=== PATIENT | male | born 1955 | race Caucasian/White ===

== ENCOUNTER → 2017-04-29 | Outpatient (CLI) | payer OTHER ==
[~2017-04-29] MED LIST: REGADENOSON 0.4 MG/5 ML DISP.SYRIN. IV ONE
--- NOTE | 2017-04-29 16:16 | PCVCIMAG ---
APPROVED REPORT Exam: Nuclear Stress Test Indication: CAD Patient Location: Out patient Stress Nurse: Karen Rivers RN, Irina Segovia RN [place] Tech:Jimmy PabloMARLENTCB Ht: 5 ft 10 in Wt: 210 lbs BSA: 2.13 m2 HR: 77 bpm BP: 137/84 mmHg BMI: 30.1 Rhythm: SR Medical History Medical History: Age, Hyperlipidemia, HTN, CVD, [place], Allergies: Sulfa, Eber Inhibitor Previous Cardiac Procedures: PCI 2015 NM EXAM: Myocardial Perfusion REST/STRESS Imaging Protocol: Rest Tc-99m/Stress Tc-99m 1 day Resting Data Rest SPECT myocardial perfusion imaging was performed in supine position 45 minutes following the intravenous injection of 11.7 mCi of Tc-99m Sestamibi. Time of rest injection: 09 Date: 04/29/2017 Pharmacologic Stress Pharmacologic stress test was performed by injecting Regadenoson 0.4 mg IV push followed by the intravenous injection of 34.2 mCi of Tc-99m Sestamibi. Time of stress injection: 1030 Date: 04/29/2017 The images were gated to evaluate regional wall motion and calculate left ventricular ejection fraction. Study Quality Study: Good Study Data Post stress, the left ventricular ejection was 68%.. SSS: 0 SRS: 0 SDS: 0 TID = 0.79. Perfusion No evidence of stress induced ischemia or prior myocardial infarction. Wall Motion Normal left ventricular size and function with no regional wall motion abnormalities. Nuclear Conclusion No evidence of stress induced ischemia or prior myocardial infarction. Normal left ventricular size and function with no regional wall motion abnormalities. Post stress, the left ventricular ejection was 68%.. No prior study available for comparison. Interpreted by: Prince Baeza MD Electronically Approved: 04/29/2017 13:36:35 Stress Test Details Stress Test: Pharmacologic stress was paired with low level exercise. HR Resting HR: 77 bpmMax Heart Rate (APMHR): 157 bpm Max HR Achieved: 127 bpmTarget HR (85% APMHR): 133 bpm % of APMHR: 80 Recovery HR: 80 bpm BP Resting BP: 137/84 mmHg Max BP: 122/74 mmHg ECG Resting ECG: Sinus Rhythm with non-specific ST segment abnormality Stress ECG: Sinus Rhythm with non-specific ST segment abnormality ST Change: None Maximum ST Deviation: 0 mm Arrhythmia: VPC's Recovery ECG: Sinus Rhythm Recovery ST Deviation: 0 mm Clinical Reason for Termination: Completed protocol Stress Symptoms: None Stress ECG Conclusion Clinical: Non-ischemic ECG: Non-ischemic <Conclusion> Clinical: Non-ischemic ECG: Non-ischemic
== END | disposition home or self-care (01) ==
LOC: PCVCIMAG 08:57
PROVIDERS: ATTEND Internal Medicine
DX: I25.10 Atherosclerotic heart disease of native coronary artery without angina pectoris (principal); I10 Essential (primary) hypertension; I25.2 Old myocardial infarction; E78.5 Hyperlipidemia, unspecified; K52.9 Noninfective gastroenteritis and colitis, unspecified; R79.89 Other specified abnormal findings of blood chemistry
CPT/HCPCS: 36415; 78452; 93017; A9500; J2785